=== PATIENT | female | born 1995 | race Hispanic/Latino ===

== ENCOUNTER 2017-01-30 04:13 | Day surgery (SDC) | payer OTHER ==
[2017-01-30 04:39] VITALS: BMI 27.4
[2017-01-30 05:15] LABS: Amnisure Test No Membranes Rupture (No Rupture)
--- NOTE | 2017-01-30 05:39 | PDOC.EVN ---
Event Note - Event Note Event Note: Triage: 01/30/17 @0520: Patient of Dr Shaw here for vaginal leaking/discharge. HPI: 21 yo G1 with possible LOF for the last 1-2 hours, no VB. No trauma, no HAs , good FM. States has GB stones this . 37 weeks. Review of systems: neg All: NONE Surg: none PE: afebrile, normotensive NAD S=D Cervix closed Sterile spec done and no pooling, neg valsalva. Thick white dsch in vagina c/w yeast. Lab: Amnisure negative Monitors: Cat 1 , no CTX Assessment: Threatened labor at 37 weeks. Plan: 1. Amnisure: neg 2. VPs sent..pending, suspect jesus 3. No evidence PTL 4. Await VP3 for now Patient has handwritten progress note in chart
[2017-01-30 06:06] VITALS: BP 102/61; TEMP 98.2
--- NOTE | 2017-01-30 08:12 | PDOC.EVN ---
Event Note - Event Note Event Note: 0810: VP3 with yeast as per exam. Home with diflucan
[2017-01-30] MEDS ORDERED: Fluconazole 100 MG TAB PO SCH (09:00)
[2017-01-31] MEDS ORDERED: FLU VACC QS2017-18 36 mo. & older 0.5 ML SYRINGE IM ONE (09:00)
== END 2017-01-30 08:52 | disposition home or self-care (01) ==
LOC: L&D/OP 04:13
PROVIDERS: ATTEND Family Medicine
DX: O42.02 Full-term premature rupture of membranes, onset of labor within 24 hours of rupture (principal); O23.593 Infection of other part of genital tract in pregnancy, third trimester; Z3A.37 37 weeks gestation of pregnancy
CPT/HCPCS: 84112; 87480; 87510; 87660

== ENCOUNTER 2018-11-09 09:12 | Inpatient (IN) | payer OTHER ==
[2018-11-09] MEDS ORDERED: hydrALAZINE 20 MG/ML VIAL SLOW IVP PRN ×3 (09:39→21:09)
[2018-11-09 09:52] VITALS: BMI 28.3
--- NOTE | 2018-11-09 10:09 | PDOC.LDHP ---
Labor and Delivery H&P Chief complaint: contractions HPI: 23 y/o at 39w3d, patient of Dr. Shaw, presents with ctx since 5:30 this morning becoming more regular and painful. Denies VB, LOF, or decreased FM. ROS neg for HEENT, cv, pulm, gi, gu, neuro, psych, skin, musculoskeletal or constitutional symptoms other than mentioned above. OB History Details: 1 prior term Current complications: none Past Medical History: None Current medications: pre-marcelo vitamins Previous surgical history: cholecystectomy Allergies/Adverse Reactions: Allergies Allergy/AdvReac Type Severity Reaction Status Date / Time No Known Allergies Allergy Verified 11/09/18 09:46 Social history: none - Physical Exam Vital signs reviewed and normal: yes General: NAD, resting Lungs: nonlabored breathing Abdomen: gravid Extremeties: no edema FHT: category 1 (140s, mod variability, + accels, no decels) [place] contractions every: 2-3 mins - Vaginal Exam cm dilated: 1 (repeat /-3) Effacement: 50% Station: -3 - OB Labs Blood type: O RH: negative Antibody Screen: negative HIV: negative RPR: negative HEPSAg: negative GBS: negative Rubella: immune - Assessment L&D Assessment: term patient in labor - Plan Plan: admit to L&D, labor augmentation if indicated, informed consent obtained, anesthesia consult for pain management (if desired)
[2018-11-09] MEDS ORDERED: Diphenoxylate HCl/Atropine Tablet PO PRN ×2 (10:57)
[2018-11-09] MEDS ORDERED: Acetaminophen 500 MG TAB PO PRN (10:57)
[2018-11-09] MEDS ORDERED: Ondansetron PF 4 MG/2 ML Vial IVP PRN ×2 (10:57→21:09)
[2018-11-09] MEDS ORDERED: Ibuprofen 800 MG TAB PO PRN (10:57)
[2018-11-09] MEDS ORDERED: HYDROcodone/Acetaminophen 5/325 mg Tablet PO PRN ×3 (10:57→21:09)
[2018-11-09] MEDS ORDERED: Promethazine HCl 25 MG/ML VIAL IM PRN (10:57)
[2018-11-09] MEDS ORDERED: NS / Oxytocin 40 units/1000ml 1,000 ML IV PRN (10:57)
[2018-11-09] MEDS ORDERED: Carboprost 250 MCG/ML AMP IM PRN (10:57)
[2018-11-09] MEDS ORDERED: Misoprostol 200 MCG TAB PR PRN (10:57)
[2018-11-09] MEDS ORDERED: Lidocaine 1% (PF) 30 ML VIAL SC PRN (10:57)
[2018-11-09] MEDS ORDERED: Methylergonovine 0.2 MG/ML VIAL IM PRN (10:57)
[2018-11-09] MEDS ORDERED: Butorphanol Tartrate 1 MG/ML VIAL SLOW IVP PRN (10:57)
[2018-11-09 11:40] LABS: Hemoglobin 11.6 g/dL (12.0-16.0); Mean Corpuscular Hemoglobin 25.2 pg (27.0-31.0); Mean Corpuscular Volume 76.5 fL (78.0-98.0); Mean Platelet Volume 9.7 fL (7.4-10.4); Platelet Count 229 thou/uL (130-400); RBC Distribution Width 14.8 % (11.5-14.5); Red Blood Cell (RBC) Count 4.58 mill/uL (4.20-5.40); White Blood Cell (WBC) Count 9.8 thou/uL (4.8-10.8)
[2018-11-09] MEDS ORDERED: Fentanyl 4 mcg/Bup 0.1% Cadd 100 ML ONE (11:56)
[2018-11-09] MEDS ORDERED: Lidocaine 1.5%/Epinephrine 1:200,000 5 ML AMPUL IJ ONE (12:05)
[2018-11-09 12:16] LABS: Syphilis Antibody Nonreactive (Nonreactive); Syphilis Antibody Index 0.04 S/CO (<1.00 Non-Reactive)
[2018-11-09 12:17] LABS: HBSAg Index 0.17 S/CO (0-0.99); Hep B Surf Ag Non-Reactive S/CO (NonReactive)
[2018-11-09] MEDS ORDERED: NS w/ Oxytocin 10 units 500 ML ONE (12:50)
[2018-11-09] MEDS ORDERED: NS w/ Oxytocin 10 units 500 ML IV SCH ×2 (13:00)
[2018-11-09] MEDS: Lactated Ringer's 1,000 ML IV SCH (13:42)
[2018-11-09] MEDS ORDERED: Bisacodyl 10 MG SUPP PR PRN (21:09)
[2018-11-09] MEDS ORDERED: NS / Oxytocin 40 units/1000ml 1,000 ML IV SCH (21:09)
[2018-11-09] MEDS ORDERED: Milk Of Magnesia 30 ML UDCUP PO PRN (21:09)
[2018-11-09] MEDS ORDERED: Lanolin Ointment 7 GM TUBE TOP PRN (21:09)
[2018-11-09] MEDS ORDERED: Benzocaine-Menthol 82.5 ML CAN TOP PRN (21:09)
[2018-11-09] MEDS: Docusate Calcium (SURFAK) 240 MG CAP PO SCH (22:17)
[2018-11-09] MEDS: HYDROcodone/Acetaminophen 5/325 mg Tablet PO PRN (22:17)
[2018-11-10] MEDS: Ibuprofen 800 MG TAB PO SCH ×3 (02:35→14:06)
[2018-11-10] MEDS: HYDROcodone/Acetaminophen 5/325 mg Tablet PO PRN ×3 (05:13→14:06)
[2018-11-10] MEDS: Lactated Ringer's 1,000 ML IV SCH (07:41)
[2018-11-10] MEDS: Ferrous Sulfate 325 MG TAB PO SCH ×2 (07:41→16:36)
[2018-11-10] MEDS ORDERED: Adacel (T-DAP) 0.5 ML SYRINGE IM ONE (09:00)
[2018-11-10] MEDS ORDERED: Prenatal Vitamin 1 TAB PO SCH (09:00)
[2018-11-10 20:02] VITALS: BP 112/61; TEMP 97.5
== END 2018-11-10 20:05 | disposition home or self-care (01) | DRG 807 ==
LOC: L&D/OP 09:12 → L&D 12:53 → 3SW 21:23
PROVIDERS: ADMIT Family Medicine; ATTEND Family Medicine
PROC: 10907ZC Drainage of Amniotic Fluid, Therapeutic from Products of Conception, Via Natural or Artificial Opening (ICD-10-PCS; principal; 2018-11-09)
PROC: 10E0XZZ Delivery of Products of Conception, External Approach (ICD-10-PCS; 2018-11-09)
DX: O80 Encounter for full-term uncomplicated delivery (principal); Z37.0 Single live birth; Z3A.39 39 weeks gestation of pregnancy
CPT/HCPCS: 36415; 85027; 85461; 86780; 86850; 86870; 86900; 86901; 87340; 90384; 96372; J2590; J3490